=== PATIENT | female | born 1940 | race African-American/Black ===

== ENCOUNTER 2016-04-13 01:50 | Inpatient (IN) | payer OTHER ==
[2016-04-13] VITALS (51 sets, daily range): BP systolic 106–158; BP diastolic 45–103
[~2016-04-13] VITALS: Ht 160 cm; Wt 59.0 kg
[2016-04-13] MEDS ORDERED: Amiodarone 150mg/ml 3ml Amp IVP ONE (03:00)
[2016-04-13] MEDS ORDERED: Amiodarone 150mg/ml 3ml Amp ONE (03:01)
[2016-04-13 03:24] LABS: BASOPHILS % (AUTO) 0.8 % (0.0-2.0); EOSINOPHILS % (AUTO) 1.9 % (0.0-3.0); LYMPHOCYTES % (AUTO) 15.5 % (20.0-45.0); MEAN CORPUSCULAR HEMOGLOBIN 26.9 PG (27.0-31.0); MEAN CORPUSCULAR HGB CONC 32.4 G/DL (32.0-36.0); MEAN CORPUSCULAR VOLUME 83 FL (80-99); MEAN PLATELET VOLUME 6.8 FL (6.5-10.1); MONOCYTES % (AUTO) 4.9 % (1.0-10.0); NEUTROPHILS % (AUTO) 76.9 % (45.0-75.0); PLATELET COUNT 241 K/UL (150-450); RED CELL DISTRIBUTION WIDTH 17.1 % (11.6-14.8); WHITE BLOOD COUNT 7.1 K/UL (4.8-10.8)
[2016-04-13 03:35] LABS: ALANINE AMINOTRANSFERASE 44 U/L (3-33); ANION GAP 18 (5-15); ASPARTATE AMINO TRANSFERASE 60 U/L (5-40); CALCIUM 9.8 mg/dL (8.6-10.2); CARBON DIOXIDE 22 mEQ/L (20-30); CHLORIDE 104 mEQ/L (98-107); CREATININE 1.2 mg/dL (0.5-0.9); HEMOLYSIS 7; POTASSIUM 3.7 mEQ/L (3.4-4.9); SODIUM 144 mEQ/L (135-145); TOTAL PROTEIN 8.1 g/dL (6.6-8.7)
[2016-04-13 03:45] LABS: TROPONIN I < 0.30 ng/mL (<=0.30)
--- NOTE | 2016-04-13 05:08 | Emergency Room Report ---
History of Present Illness General Chief Complaint: Pacemaker/Defibrillator Source: Patient Present Illness HPI Patient is a 75-year-old female who presented from home after multiple episodes in which her automatic internal defibrillator had fired. The patient had prior history of arrhythmia. The patient is not currently taking any antiarrhythmic medications. The patient brought in by EMS. Patient reported having multiple shocklike episodes. This was onset acutely. The patient had been followed at [facility]. Her primary care physician is . History is obtained from family and EMS.The patient takes LIZ inhibitor. She had prior history of congestive heart failure and takes Lasix 40 mg Allergies: Coded Allergies: No Known Allergies (Unverified , 04/13/16) Patient History Past Medical History: see triage record Reviewed Nursing Documentation: PMH: Agreed, PSxH: Agreed Nursing Documentation-PMH Hx Pacemaker: Yes - defib placed on thanksgiving Review of Systems All Other Systems: negative except mentioned in HPI Physical Exam Vital Signs Date Time Temp Pulse Resp B/P Pulse Ox O2 Delivery O2 Flow Rate FiO2 04/13/16 01:49 97.3 78 16 177/86 100 Room Air Sp02 EP Interpretation: reviewed, normal General Appearance: normal inspection, well appearing, no apparent distress, alert, GCS 15 Head: atraumatic ENT: normal ENT inspection, hearing grossly normal, normal voice Neck: normal inspection, full range of motion, supple, no bony tend Respiratory: normal inspection, lungs clear, normal breath sounds, no respiratory distress, no retraction, no wheezing Cardiovascular #1: no edema, tachycardia, irregularly irregular Gastrointestinal: normal inspection, normal bowel sounds, non tender, soft, no guarding, no hernia Genitourinary: no CVA tenderness Musculoskeletal: normal inspection, back normal, normal range of motion Neurologic: normal inspection, alert, oriented x3, responsive, hand laminator III-XII nml as tested, speech normal Psychiatric: normal inspection, judgement/insight normal, mood/affect normal Skin: normal inspection, normal color, no rash Procedures Critical Care Time Critical Care Time Patient had a critical medical condition which untreated could potentially result in life or limb threatening injury. Total critical care time excluding procedures approximately 45 minutes. Medical Decision Making Diagnostic Impression: Primary Impression: Arrhythmia Additional Impressions: Ventricular fibrillation, paroxysmal AICD (automatic cardioverter/defibrillator) present AICD discharge ER Course The patient presented for AICD firing. Differential diagnosis included was not limited to the device malfunction, arrhythmia, electrolyte abnormality, congestive heart failure among others. The patient was noted to have markedly tachycardia with intermittent episodes where she would have AICD firing while in emergency department. The rhythm strip at the time of AICD firing showed ventricular fibrillation. Patient was given IV magnesium and amiodarone. Patient subsequently started on esmolol drip. Initial cardiac enzymes showed and negative troponin. The patient's claims customer service representative stated that patient has an EF 25% and history of tachybradycardia syndrome. He reports that he has no ischemic heart disease he states that she has a [place] scientific device. The implant on January [address] Anton was contacted for inpatient management due to complexity of medical condition. Dr. Ludmila Caballero was contacted for cardiology consult by Dr. anton. Labs Test 04/13/16 02:45 White Blood Count 7.1 K/UL (4.8-10.8) Red Blood Count 4.20 M/UL (4.20-5.40) Hemoglobin 11.3 G/DL (12.0-16.0) Hematocrit 34.8 % (37.0-47.0) Mean Corpuscular Volume 83 FL (80-99) Mean Corpuscular Hemoglobin 26.9 PG (27.0-31.0) Mean Corpuscular Hemoglobin Concent 32.4 G/DL (32.0-36.0) Red Cell Distribution Width 17.1 % (11.6-14.8) Platelet Count 241 K/UL (150-450) Mean Platelet Volume 6.8 FL (6.5-10.1) Neutrophils (%) (Auto) 76.9 % (45.0-75.0) Lymphocytes (%) (Auto) 15.5 % (20.0-45.0) Monocytes (%) (Auto) 4.9 % (1.0-10.0) Eosinophils (%) (Auto) 1.9 % (0.0-3.0) Basophils (%) (Auto) 0.8 % (0.0-2.0) Sodium Level 144 mEQ/L (135-145) Potassium Level 3.7 mEQ/L (3.4-4.9) Chloride Level 104 mEQ/L (98-107) Carbon Dioxide Level 22 mEQ/L (20-30) Anion Gap 18 (5-15) Blood Urea Nitrogen 31 mg/dL (7-23) Creatinine 1.2 mg/dL (0.5-0.9) Estimat Glomerular Filtration Rate mL/min (>60) Glucose Level 136 mg/dL (74-106) Calcium Level 9.8 mg/dL (8.6-10.2) Total Bilirubin 0.4 mg/dL (0.0-1.2) Aspartate Amino Transf (AST/SGOT) 60 U/L (5-40) Alanine Aminotransferase (ALT/SGPT) 44 U/L (3-33) Alkaline Phosphatase 119 U/L (35-104) Total Creatine Kinase 586 U/L (26-140) Troponin I < 0.30 ng/mL (<=0.30) Total Protein 8.1 g/dL (6.6-8.7) Albumin 4.2 g/dL (3.5-5.2) Globulin 3.9 g/dL Albumin/Globulin Ratio 1.0 (1.0-2.7) EKG Diagnostic Results Rate: tachycardiac ST Segments: no acute changes Rhythm Strip Diag. Results EP Interpretation: yes Rhythm: NSR, other - intermittent paced rhythm Chest X-Ray Diagnostic Results EP Interpretation: Yes Findings: no consolidation, no effusion, no pneumothorax, other - cardiomegaly Number of Views: 1 Last Vital Signs Date Time Temp Pulse Resp B/P Pulse Ox O2 Delivery O2 Flow Rate FiO2 04/13/16 04:50 97.3 60 23 134/77 97 Room Air Status: unchanged Disposition: ADMITTED INPATIENT Condition: Critical Referrals: NON PHYSICIAN (PCP) Mohan Macias Apr 13, 2016 05:08
[2016-04-13] MEDS ORDERED: LORazepam Inj 2mg/ml 1ml IV PRN (07:00)
[2016-04-13] MEDS ORDERED: Miralax 17gm pkt ORAL PRN (07:00)
[2016-04-13] MEDS ORDERED: DuoNeb 0.5-3(2.5)mg/3ml neb HHN PRN (07:00)
[2016-04-13] MEDS ORDERED: Nitroglycerin Subl 0.4mg tab (Bottle Of 25) SL PRN (07:00)
[2016-04-13] MEDS ORDERED: Morphine Sulfate 4mg/ml Inj IVP PRN (07:00)
--- NOTE | 2016-04-13 08:48 | Cardiology Progress Note ---
Assessment/Plan Assessment/Plan icd dc for pmvt? pmvt ? electolyte induc ed vs tachy induced narrow complex tachy ? afib cm per hx htn per hx k and mg supplemtn agree with amiod drip for now icd interrogation echo seril enzymes adn ekg repeat electolyte am tryign to contact her ep will have ep see here as well [id number] Objective Last 24 Hour Vital Signs Date Time Temp Pulse Resp B/P Pulse Ox O2 Delivery O2 Flow Rate FiO2 04/13/16 07:30 60 20 116/70 100 Room Air 04/13/16 07:05 97.3 60 22 108/67 100 Room Air 04/13/16 06:50 97.3 60 21 106/62 100 Room Air 04/13/16 06:35 97.3 60 22 116/70 98 Room Air 04/13/16 06:20 97.3 60 30 126/45 100 Room Air 04/13/16 06:05 97.3 118 26 113/78 100 Room Air 04/13/16 05:55 97.3 120 18 119/81 99 Room Air 04/13/16 05:50 97.3 120 22 118/79 100 Room Air 04/13/16 05:45 97.3 119 24 112/80 99 Room Air 04/13/16 05:40 97.3 120 17 107/74 97 Room Air 04/13/16 05:35 97.3 121 23 107/74 97 Room Air 04/13/16 05:30 97.3 123 15 107/76 100 Room Air 04/13/16 05:25 97.3 124 21 125/83 100 Room Air 04/13/16 05:20 97.3 126 15 127/85 100 Room Air 04/13/16 05:15 97.3 136 24 134/94 100 Room Air 04/13/16 05:10 97.3 132 21 130/91 100 Room Air 04/13/16 05:05 97.3 131 20 127/82 100 Room Air 04/13/16 05:04 97.3 60 18 135/74 100 Room Air 04/13/16 04:50 97.3 60 23 134/77 97 Room Air 04/13/16 04:45 97.3 60 29 136/79 99 Room Air 04/13/16 04:40 97.3 60 25 139/79 99 Room Air 04/13/16 04:35 97.3 123 24 126/91 96 Room Air 04/13/16 04:30 97.3 128 26 129/90 96 Room Air 04/13/16 04:25 97.3 134 24 120/87 91 Room Air 04/13/16 03:25 97.3 78 29 144/97 97 Room Air 04/13/16 03:10 97.3 122 31 144/97 100 Room Air 04/13/16 02:50 97.3 158 34 158/103 97 Room Air 04/13/16 02:30 88 04/13/16 02:30 97.3 88 16 158/103 99 Room Air 04/13/16 01:49 97.3 78 16 177/86 100 Room Air Intake and Output 04/12/16 04/13/16 19:00 07:00 Intake Total 0 ml Output Total 750 ml Balance -750 ml Intake Oral 0 ml Output Urine Total 750 ml Laboratory Tests Test 04/13/16 02:45 White Blood Count 7.1 K/UL (4.8-10.8) Red Blood Count 4.20 M/UL (4.20-5.40) Hemoglobin 11.3 G/DL (12.0-16.0) L Hematocrit 34.8 % (37.0-47.0) L Mean Corpuscular Volume 83 FL (80-99) Mean Corpuscular Hemoglobin 26.9 PG (27.0-31.0) L Mean Corpuscular Hemoglobin Concent 32.4 G/DL (32.0-36.0) Red Cell Distribution Width 17.1 % (11.6-14.8) H Platelet Count 241 K/UL (150-450) Mean Platelet Volume 6.8 FL (6.5-10.1) Neutrophils (%) (Auto) 76.9 % (45.0-75.0) H Lymphocytes (%) (Auto) 15.5 % (20.0-45.0) L Monocytes (%) (Auto) 4.9 % (1.0-10.0) Eosinophils (%) (Auto) 1.9 % (0.0-3.0) Basophils (%) (Auto) 0.8 % (0.0-2.0) Sodium Level 144 mEQ/L (135-145) Potassium Level 3.7 mEQ/L (3.4-4.9) Chloride Level 104 mEQ/L (98-107) Carbon Dioxide Level 22 mEQ/L (20-30) Anion Gap 18 (5-15) H Blood Urea Nitrogen 31 mg/dL (7-23) H Creatinine 1.2 mg/dL (0.5-0.9) H Estimat Glomerular Filtration Rate mL/min (>60) Glucose Level 136 mg/dL (74-106) H Calcium Level 9.8 mg/dL (8.6-10.2) Total Bilirubin 0.4 mg/dL (0.0-1.2) Aspartate Amino Transf (AST/SGOT) 60 U/L (5-40) H Alanine Aminotransferase (ALT/SGPT) 44 U/L (3-33) H Alkaline Phosphatase 119 U/L (35-104) H Total Creatine Kinase 586 U/L (26-140) H Creatine Kinase MB Pending Troponin I < 0.30 ng/mL (<=0.30) Total Protein 8.1 g/dL (6.6-8.7) Albumin 4.2 g/dL (3.5-5.2) Globulin 3.9 g/dL Albumin/Globulin Ratio 1.0 (1.0-2.7) KARY BEAVERS Apr 13, 2016 08:48
[2016-04-13] MEDS: Heparin 5000 units/ml inj SUBQ SCH ×2 (09:40→20:56)
[2016-04-13 10:09] LABS: ALANINE AMINOTRANSFERASE 51 U/L (3-33); ALBUMIN/GLOBULIN RATIO 1.1 (1.0-2.7); ANION GAP 15 (5-15); ASPARTATE AMINO TRANSFERASE 71 U/L (5-40); CALCIUM 9.5 mg/dL (8.6-10.2); CARBON DIOXIDE 24 mEQ/L (20-30); CHLORIDE 103 mEQ/L (98-107); CREATININE 1.1 mg/dL (0.5-0.9); HEMOLYSIS 62; POTASSIUM 4.7 mEQ/L (3.4-4.9); SODIUM 142 mEQ/L (135-145); TOTAL PROTEIN 7.4 g/dL (6.6-8.7)
[2016-04-13 10:13] LABS: TROPONIN I 0.51 ng/mL (<=0.30)
[2016-04-13] MEDS ORDERED: POTASSIUM99 M2 PO (11:52)
[2016-04-13] MEDS ORDERED: bp pill (11:52)
[2016-04-13] MEDS ORDERED: Amiodarone 200mg tab ORAL SCH (12:00)
--- NOTE | 2016-04-13 12:26 | Diagnostic Imaging Report ---
Indication: SOB Technique: One view of the chest Comparison: none Findings: The heart is enlarged. There is a 5 cm round mass at the left lung base. No infiltrates. There are is a small right-sided pleural effusion. There is a left chest AICD Impression: Left basilar 5 cm mass. Further evaluation with chest CT recommended Cardiomegaly Small right pleural effusion Dr. Gan notified of the findings at time of interpretation
--- NOTE | 2016-04-13 14:24 | Cardiology Report ---
APPROVED REPORT EXAM: Two-dimensional and M-mode echocardiogram with Doppler and color Doppler. INDICATION Chest Pain M-Mode DIMENSIONS IVSd0.9 (0.7-1.1cm)Left Atrium (MM)4.0 (1.6-4.0cm) LVDd5.1 (3.5-5.6cm)Aortic Root2.9 (2.0-3.7cm) PWd1.5 (0.7-1.1cm)Aortic Cusp Exc.1.7 (1.5-2.0cm) LVDs4.8 (2.5-4.0cm) PWs1.3 cm Technically difficult study due to poor acoustic windows. Normal left ventricular chamber size. Global LV hypokinesis. Left ventricular ejection fraction estimated to be less than 20 %. Mild left ventricular hypertrophy. No evidence of pericardial fat or effusion. Moderate left atrial enlargement by 2D. Mild right atrial enlargement by 2D. Focal aortic valve sclerosis with adequate cusp excursion Thickened mitral valve leaflets with normal excursion. Mitral annulus and aortic root calcification. Pulmonic valve not well visualized. Normal tricuspid valve structure. IVC dilated at 2.3cm with physiologic collapse. Probable pacemaker wire present in the right side chambers. A color flow and spectral Doppler study was performed and revealed: Moderate aortic regurgitation. Mild mitral regurgitation. Mitral inflow velocities indicates possible pseudo normalization pattern implying significant left ventricular diastolic dysfunction. Moderate tricuspid regurgitation. Tricuspid systolic velocities suggests peak right ventricular systolic pressure of 56 mmHg Consistent with severe pulmonary hypertension. Pulmonic regurgitation present.
--- NOTE | 2016-04-13 16:11 | History and Physical ---
History of Present Illness General Date patient seen: Apr 13, 2016 Reason for Hospitalization: Pacemaker/Defibrillator Present Illness HPI 75-year-old female with PMHx of HTN, ICD who presented from home after multiple episodes in which her automatic internal defibrillator had fired. Patient reported having multiple shocklike episodes. This was onset acutely. The patient had been followed at [facility]. She had prior history of congestive heart failure and takes Lasix 40 mg. She is being admitted to ICU for interrogation of her ICD and close monitoring Allergies: Coded Allergies: No Known Allergies (Unverified , 04/13/16) Medication History Miscellaneous Medications Potassium (Potassium), Unknown Dose PO, (Reported) [bp pill], (Reported) Patient History Healthcare decision maker Resuscitation status Advanced Directive on File Past Medical/Surgical History Past Medical/Surgical History: (1) HTN (hypertension) (2) AICD (automatic cardioverter/defibrillator) present (3) Arrhythmia Review of Systems All Other Systems: negative except mentioned in HPI Physical Exam General Appearance: WD/WN Lines, tubes and drains: peripheral, central line HEENT: normocephalic, atraumatic Neck: non-tender, supple Respiratory/Chest: chest wall non-tender, lungs clear Breasts: no masses Cardiovascular/Chest: normal peripheral pulses, normal rate Last 24 Hour Vital Signs Date Time Temp Pulse Resp B/P Pulse Ox O2 Delivery O2 Flow Rate FiO2 04/13/16 15:48 97.5 60 18 114/70 100 Room Air 04/13/16 15:00 60 18 114/70 100 Room Air 04/13/16 14:00 60 18 125/76 100 Room Air 04/13/16 13:00 60 22 113/69 100 Room Air 04/13/16 12:00 97.5 60 20 130/85 100 Room Air 04/13/16 11:00 60 22 122/82 100 Room Air 04/13/16 10:00 60 18 123/74 97 Room Air 04/13/16 09:30 60 20 121/71 95 Room Air 04/13/16 09:00 60 20 121/71 95 Room Air 04/13/16 08:30 60 20 121/73 99 Room Air 04/13/16 08:00 60 18 120/72 100 Room Air 04/13/16 07:30 60 20 116/70 100 Room Air 04/13/16 07:05 97.3 60 22 108/67 100 Room Air 04/13/16 06:50 97.3 60 21 106/62 100 Room Air 04/13/16 06:35 97.3 60 22 116/70 98 Room Air 04/13/16 06:20 97.3 60 30 126/45 100 Room Air 04/13/16 06:05 97.3 118 26 113/78 100 Room Air 04/13/16 05:55 97.3 120 18 119/81 99 Room Air 04/13/16 05:50 97.3 120 22 118/79 100 Room Air 04/13/16 05:45 97.3 119 24 112/80 99 Room Air 04/13/16 05:40 97.3 120 17 107/74 97 Room Air 04/13/16 05:35 97.3 121 23 107/74 97 Room Air 04/13/16 05:30 97.3 123 15 107/76 100 Room Air 04/13/16 05:25 97.3 124 21 125/83 100 Room Air 04/13/16 05:20 97.3 126 15 127/85 100 Room Air 04/13/16 05:15 97.3 136 24 134/94 100 Room Air 04/13/16 05:10 97.3 132 21 130/91 100 Room Air 04/13/16 05:05 97.3 131 20 127/82 100 Room Air 04/13/16 05:04 97.3 60 18 135/74 100 Room Air 04/13/16 04:50 97.3 60 23 134/77 97 Room Air 04/13/16 04:45 97.3 60 29 136/79 99 Room Air 04/13/16 04:40 97.3 60 25 139/79 99 Room Air 04/13/16 04:35 97.3 123 24 126/91 96 Room Air 04/13/16 04:30 97.3 128 26 129/90 96 Room Air 04/13/16 04:25 97.3 134 24 120/87 91 Room Air 04/13/16 03:25 97.3 78 29 144/97 97 Room Air 04/13/16 03:10 97.3 122 31 144/97 100 Room Air 04/13/16 02:50 97.3 158 34 158/103 97 Room Air 04/13/16 02:30 88 04/13/16 02:30 97.3 88 16 158/103 99 Room Air 04/13/16 01:49 97.3 78 16 177/86 100 Room Air Intake and Output 04/12/16 04/13/16 19:00 07:00 Intake Total 0 ml Output Total 750 ml Balance -750 ml Intake Oral 0 ml Output Urine Total 750 ml Laboratory Tests Test 04/13/16 02:45 04/13/16 02:48 04/13/16 09:30 White Blood Count 7.1 K/UL (4.8-10.8) Red Blood Count 4.20 M/UL (4.20-5.40) Hemoglobin 11.3 G/DL (12.0-16.0) L Hematocrit 34.8 % (37.0-47.0) L Mean Corpuscular Volume 83 FL (80-99) Mean Corpuscular Hemoglobin 26.9 PG (27.0-31.0) L Mean Corpuscular Hemoglobin Concent 32.4 G/DL (32.0-36.0) Red Cell Distribution Width 17.1 % (11.6-14.8) H Platelet Count 241 K/UL (150-450) Mean Platelet Volume 6.8 FL (6.5-10.1) Neutrophils (%) (Auto) 76.9 % (45.0-75.0) H Lymphocytes (%) (Auto) 15.5 % (20.0-45.0) L Monocytes (%) (Auto) 4.9 % (1.0-10.0) Eosinophils (%) (Auto) 1.9 % (0.0-3.0) Basophils (%) (Auto) 0.8 % (0.0-2.0) Sodium Level 144 mEQ/L (135-145) 142 mEQ/L (135-145) Potassium Level 3.7 mEQ/L (3.4-4.9) 4.7 mEQ/L (3.4-4.9) Chloride Level 104 mEQ/L (98-107) 103 mEQ/L (98-107) Carbon Dioxide Level 22 mEQ/L (20-30) 24 mEQ/L (20-30) Anion Gap 18 (5-15) H 15 (5-15) Blood Urea Nitrogen 31 mg/dL (7-23) H 30 mg/dL (7-23) H Creatinine 1.2 mg/dL (0.5-0.9) H 1.1 mg/dL (0.5-0.9) H Estimat Glomerular Filtration Rate mL/min (>60) mL/min (>60) Glucose Level 136 mg/dL (74-106) H 128 mg/dL (74-106) H Calcium Level 9.8 mg/dL (8.6-10.2) 9.5 mg/dL (8.6-10.2) Total Bilirubin 0.4 mg/dL (0.0-1.2) 0.5 mg/dL (0.0-1.2) Aspartate Amino Transf (AST/SGOT) 60 U/L (5-40) H 71 U/L (5-40) H Alanine Aminotransferase (ALT/SGPT) 44 U/L (3-33) H 51 U/L (3-33) H Alkaline Phosphatase 119 U/L (35-104) H 104 U/L (35-104) Total Creatine Kinase 586 U/L (26-140) H Creatine Kinase MB Pending Troponin I < 0.30 ng/mL (<=0.30) 0.51 ng/mL (<=0.30) *H Total Protein 8.1 g/dL (6.6-8.7) 7.4 g/dL (6.6-8.7) Albumin 4.2 g/dL (3.5-5.2) 3.9 g/dL (3.5-5.2) Globulin 3.9 g/dL 3.5 g/dL Albumin/Globulin Ratio 1.0 (1.0-2.7) 1.1 (1.0-2.7) Magnesium Level 2.0 mg/dL (1.7-2.5) Height (Feet): 5 Height (Inches): 3.00 Weight (Pounds): 130 Medications Current Medications Medications (Trade) Dose Ordered Sig/Brennan Route PRN Reason Start Time Stop Time Status Last Admin Dose Admin Acetaminophen (Tylenol) 650 mg Q4H PRN ORAL Fever 04/13/16 07:00 05/13/16 06:59 Albuterol/ Ipratropium (DuoNeb 0.5-3(2.5)mg/3ml) 3 ml Q4H PRN HHN Shortness of Breath 04/13/16 07:00 04/18/16 06:59 Amiodarone HCl (Cordarone) 400 mg BID ORAL 04/13/16 12:00 05/13/16 11:59 04/13/16 11:57 Dextrose (Dextrose 50%) STAT PRN IV Hypoglycemia 04/13/16 07:00 05/13/16 06:59 Esmolol HCl (Brevibloc) 250 ml @ 0 mls/hr Q24H IV 04/13/16 04:00 05/13/16 03:59 04/13/16 04:25 Heparin Sodium (Porcine) (Heparin 5000 units/ml) 5,000 units EVERY 12 HOURS SUBQ 04/13/16 09:00 05/13/16 08:59 04/13/16 09:40 Lorazepam (Ativan 2mg/ml 1ml) 2 mg Q2H PRN IV agitation 04/13/16 07:00 04/20/16 06:59 Morphine Sulfate (Morphine Sulfate) 4 mg Q4H PRN IVP Severe Pain (Pain Scale 7-10) 04/13/16 07:00 04/20/16 06:59 Nitroglycerin (Ntg) 0.4 mg Q5M PRN SL Prn Chest Pain 04/13/16 07:00 05/13/16 06:59 Ondansetron HCl (Zofran) 4 mg Q6H PRN IVP Nausea & Vomiting 04/13/16 07:00 05/13/16 06:59 Polyethylene Glycol (Miralax) 17 gm DAILYPRN PRN ORAL Constipation 04/13/16 07:00 05/13/16 06:59 Assessment/Plan Problem List: (1) AICD (automatic cardioverter/defibrillator) present ICD Codes: Z95.810 - Presence of automatic (implantable) cardiac defibrillator SNOMED: 468504212, 80411190, 478232749 (2) HTN (hypertension) ICD Codes: I10 - Essential (primary) hypertension SNOMED: 79075267 (3) AICD discharge ICD Codes: Z45.02 - Encounter for adjustment and management of automatic implantable cardiac defibrillator SNOMED: 053377539, 20603698, 026303635 (4) Ventricular fibrillation, paroxysmal ICD Codes: I49.01 - Ventricular fibrillation SNOMED: 21603078, 66684079, [id number] Assessment/Plan ICU monitoring anti-arrhythmic echo serial troponin monitor bp adjust pb meds cardio evaluation SERGIO DEE Apr 13, 2016 16:11
[2016-04-13] MEDS ORDERED: Amiodarone 900 MG in D5W 500ml 482 ML IV SCH (18:00)
--- NOTE | 2016-04-13 18:16 | Consultation ---
Consult Note Consult Note Cardiac EP full note dictated Pt w/ several inappropriate shocks and inappropriate ATP for rapid AF (not detected due to atrial undersensing by device) recommend: icd reprogramming - increase detection rates and increase atrial sensitivity - done Start amiodarone. #[id number] MARIA VICTORIA CORONADO Apr 13, 2016 18:15
[2016-04-13 19:00] LABS: TROPONIN I 0.59 ng/mL (<=0.30)
--- NOTE | 2016-04-13 20:57 | Consultation ---
DATE OF CONSULTATION: 04/13/2016 CARDIOLOGY CONSULTATION CONSULTING PHYSICIAN: Jorge Gan M.D. REFERRING PHYSICIAN: Nela Anton M.D. REASON FOR REFERRAL: ICD discharge. HISTORY OF PRESENT ILLNESS: This is an elderly female, who has reportedly what appears to be an intracardiac defibrillator placement for cardiomyopathy that was placed in back in January of this past year for cardiomyopathy. She apparently has done well, last night started having several bouts of ICD discharges without any other associated sensation or palpitation. No chest pain. No pressure. No shortness of breath. No dizziness or lightheadedness. Family called the paramedics. She was brought to the emergency room at [facility] where she apparently had several more of the ICD discharges. The rhythm strips, one of them indicates an episode of tachycardia that appears to be relatively narrow complex, but at a rate of 170 or so that deteriorates into what appears to be polymorphic VT, may be suggestive of torsades. There is only a partial rhythm strip available on this, but she has had several of these happening. She has received some magnesium by the emergency room physician and she has not had any further ICD discharges. She does not have any chest pain, no shortness of breath. No PND. No orthopnea. No palpitations. No dizziness. PAST MEDICAL HISTORY: Her past medical history is positive for high blood pressure and high cholesterol, cardiomyopathy, congestive heart failure, and intracardiac defibrillator placement. No diabetes. No heart attack or cancer or stroke. No hepatitis or tuberculosis. No asthma or emphysema. No ulcers. No kidney problems, liver problems, thyroid problems, or anemia. She does have arthritis. No gynecological problem. MEDICATIONS: The patient's medications at home are unknown, but do include diuretics, however, the patient specifically was instructed to discontinue potassium use after hospitalization for upper respiratory tract infection some time. ALLERGIES: She has no known drug allergies. SOCIAL HISTORY: She does not smoke or drink alcoholic beverages. She lives at home. She is . REVIEW OF SYSTEMS: Gastrointestinal: Negative. Genitourinary: Negative. Pulmonary: Negative. Constitutional: Negative. Neurologic: She denies. Cardiac: No chest pain. The remainder as per history of present illness. PHYSICAL EXAMINATION: GENERAL: Shows to be elderly female in no apparent respiratory distress. NECK: Supple. No jugular venous distention. No abdominojugular reflux noted. LUNGS: Appear to be clear to auscultation and percussion. CARDIAC: S1 is normal. S2 is normal. Regular rate and rhythm. No heaves, thrills, gallops, or rubs are noted. ABDOMEN: Soft and nontender. Positive bowel sounds. EXTREMITIES: There is no clubbing, cyanosis, nor there any edema. NEUROLOGIC: She is awake, alert, and responsive, in no apparent distress. LABORATORY AND DIAGNOSTIC DATA: Laboratory values, electrocardiogram that was performed by the paramedics indicate sinus rhythm with intermittent atrial pacing and premature ventricular complexes being noted, QT does not appear to be significantly prolonged, there is no QT interval. Repeat EKG subsequently also shows the same or no significant ST-T wave abnormalities. Her EKG eventually here has been performed, showed normal QRS axis, no ST-T-wave abnormalities being noted on this EKG whatsoever. Her troponin less than 0.03. Sodium 144, potassium 3.7, chloride 104, bicarbonate 22, BUN of 31, creatinine 1.2, glucose of 136, and calcium is 9.8. AST and ALT of 60 and 44 respectively and alkaline phosphatase at 190. CPK level 586. Albumin of 4.2. White count 7.1, hemoglobin 11.3, and platelet count of 241,000. Chest x-ray has been performed. Review of the rhythm strips indicate as mentioned with the episode of tachycardia, does not appear to be wide complex and does appear to be somewhat irregular that deteriorates into like I said polymorphic VT. ASSESSMENT: 1. Implantable cardioverter defibrillator discharge appropriate versus related to atrial fibrillation. 2. Polymorphic ventricular tachycardia. 3. Cardiomyopathy. 4. Electrolyte abnormality. 5. History of hypertension. 6. Recurrent polymorphic ventricular tachycardia cardiomyopathy. 7. History of hypertension. 8. Electrolyte abnormalities. Dr. Anton, this patient was seen in cardiac consultation. The patient agreed ICD interrogation. The patient unfortunately is not aware of the company that services the device. I put on calls to some of the reps to see if we can identify which company to interrogate her device. The fact that she has gone into a polymorphic VT makes us question whether this may be electrolyte-induced. She has received some magnesium and we will try to add that level to the blood level drawn in the emergency room. Potassium should be repleted as well. Cardiac enzymes will be checked as a matter of routine. I suspect that elevation of some may be the cause of ICD discharges. She has been given amiodarone in the emergency room and that will be continued for possibility of other VT or inappropriate discharge for atrial fibrillation, rapid ventricular response. We will decide for those two issues once ICD is interrogated. EP evaluation will be requested. The patient's usual medications will need to be identified and continued. We will try to contact the patient's usual executive vice president, we will also ask one of our electrophysiologists to follow here as well. Jorge Gan M.D. DR: Justina JOB#: [id number] CC:
[2016-04-13] MEDS ORDERED: LOSARTAN POTAS100 MG ORAL (21:30)
[2016-04-13] MEDS ORDERED: SPIRONOLACTONE1 EACH ORAL (21:30)
[2016-04-13] MEDS ORDERED: ASPIR 8181 MG ORAL (21:30)
--- NOTE | 2016-04-13 23:57 | Consultation ---
DATE OF CONSULTATION: CONSULTING PHYSICIAN: Ludmila Caballero M.D. REQUESTING PHYSICIAN: Nela Anton M.D. REASON FOR CONSULTATION: ICD shock. HISTORY OF PRESENT ILLNESS: The patient is a 75-year-old woman, with a history of nonischemic cardiomyopathy, status post dual-chamber ICD placement ([employer]) last year. She states that she was walking in her home last night when she suddenly suffered an ICD shock. She had no preceding dizziness, lightheadedness, chest pain, or palpitations. She suffered another shock then went over to a neighbor's where she experienced additional shocks. The neighbor called 911 and she was brought by paramedics to the emergency room. In the emergency room, she also had shock. She received amiodarone intravenously at 150 mg and was admitted for further treatment. She is currently without complaints of chest pain, dyspnea, dizziness, or lightheadedness. PAST MEDICAL HISTORY: As noted above. MEDICATIONS: Amiodarone 400 mg p.o. b.i.d., potassium 20 mEq given x1, subcutaneous heparin 5000 units q.12 h., DuoNeb nebulizer q.4 h. p.r.n., sublingual nitroglycerin p.r.n., Tylenol p.r.n., and Lasix 20 mg given intravenously x1. ALLERGIES: No known drug allergies. SOCIAL HISTORY: The patient is a nonsmoker. Does not drink alcohol or use any drugs. PHYSICAL EXAMINATION: VITAL SIGNS: Blood pressure is 114/70, pulse 60 and regular, respirations 20, and afebrile. GENERAL: Alert, well-developed female, in no acute distress. HEENT: Normocephalic and atraumatic. Pupils are equal, round, and reactive to light. Sclerae anicteric. Oral mucosa are moist. NECK: Supple. There is no jugular venous distention. No carotid bruits. LUNGS: Clear to auscultation bilaterally. HEART: Regular S1 and S2. No murmurs, rubs, S3, or S4. ABDOMEN: Soft and nontender. No palpable mass. EXTREMITIES: No cyanosis, clubbing, or edema. A 2+ dorsalis pedis pulses bilaterally. NEUROLOGIC: No focal motor deficits. IMAGING STUDIES: Chest x-ray shows a dual-chamber ICD with leads entering from the left to the right atrium and right ventricular apex and cardiomegaly. No pulmonary vascular congestion. An echo done today, preliminary report shows an ejection fraction less than 20%, mild left ventricular hypertrophy, moderate aortic insufficiency, and mild mitral regurgitation. LABORATORY DATA: Hemoglobin 11.3, white blood count 7100, and platelets 241,000. Sodium 142, potassium 4.7, BUN 30, and creatinine 1.1. Troponin 0.51. EKG shows sinus rhythm at rate of 81, poor R-wave progression V1 to V3, axis +[address]-segment or T-wave changes. ICD interrogation, the device is a [employer] Dynagen implanted on 12/19/2015. The review of stored diagnostics shows the total number of treated episodes for ventricular tachycardia to be 16 and ventricular fibrillation 3 since the device was last reset on 01/06/2016. Stored electrograms from today's episode show that the patient was in atrial fibrillation with some under detection in the atrium resulting in inappropriate shocks. ASSESSMENT AND RECOMMENDATIONS: The patient is a 75-year-old woman with nonischemic cardiomyopathy, ejection fraction of about 20%, status post dual-chamber ICD, who had several inappropriate device firings today for her rapidly conducted atrial fibrillation. There appears to have been some dropout of atrial sensing though electrograms clearly show atrial fibrillation. This resulted in an appropriate detection of the arrhythmia as a ventricular event and resulted in antitachycardia pacing attempts followed by shocks. The shocks did not appear to terminate the atrial fibrillation. However, she is now in sinus rhythm after having received amiodarone. The device has been reprogrammed to higher rates for ventricular tachycardia and ventricular fibrillation detection as it appears the device was a primary prevention device. In addition, atrial sensitivity has been increased to ovoid dropout of atrial sensing resulting in inappropriate detection. She is noted to have a mildly elevated troponin, which may be due to shocks. There are no other metabolic abnormalities or findings to suggest an acute coronary syndrome. I would recommend continuing oral amiodarone with maintain electrolyte and magnesium balance. Further recommendations will be made based on her clinical course. Thank you for allowing me to participate in her care. Ludmila Caballero M.D. DR: MANE JOB#: [id number] CC: Marcelina Patel M.D.
[2016-04-14] VITALS (26 sets, daily range): BP systolic 114–136; BP diastolic 48–84
[2016-04-14 01:36] LABS: BASOPHILS % (AUTO) 1.2 % (0.0-2.0); LYMPHOCYTES % (AUTO) 21.2 % (20.0-45.0); MEAN CORPUSCULAR HEMOGLOBIN 27.1 PG (27.0-31.0); MEAN CORPUSCULAR VOLUME 82 FL (80-99); MEAN PLATELET VOLUME 7.6 FL (6.5-10.1); MONOCYTES % (AUTO) 9.6 % (1.0-10.0); NEUTROPHILS % (AUTO) 67.1 % (45.0-75.0); PLATELET COUNT 213 K/UL (150-450); RED BLOOD COUNT 3.59 M/UL (4.20-5.40); RED CELL DISTRIBUTION WIDTH 16.7 % (11.6-14.8); WHITE BLOOD COUNT 4.7 K/UL (4.8-10.8)
[2016-04-14 01:47] LABS: INR 1.1 (0.9-1.1); PROTHROMBIN TIME 10.7 SEC (9.30-11.50)
[2016-04-14 01:54] LABS: PHOSPHORUS 3.8 mg/dL (2.5-4.8); TOTAL PROTEIN 6.6 g/dL (6.6-8.7)
[2016-04-14 01:55] LABS: ALANINE AMINOTRANSFERASE 39 U/L (3-33); ANION GAP 13 (5-15); ASPARTATE AMINO TRANSFERASE 52 U/L (5-40); CALCIUM 9.3 mg/dL (8.6-10.2); CARBON DIOXIDE 22 mEQ/L (20-30); CHLORIDE 105 mEQ/L (98-107); CREATININE 1.2 mg/dL (0.5-0.9); HEMOLYSIS 3; POTASSIUM 4.3 mEQ/L (3.4-4.9); SODIUM 140 mEQ/L (135-145); TOTAL PROTEIN 6.6 g/dL (6.6-8.7)
[2016-04-14 02:16] LABS: TROPONIN I 0.58 ng/mL (<=0.30)
--- NOTE | 2016-04-14 07:42 | Cardiology Progress Note ---
Assessment/Plan Assessment/Plan 1. Implantable cardioverter defibrillator discharge appropriate versus related to atrial fibrillation. 2. Polymorphic ventricular tachycardia. 3. Cardiomyopathy. 4. Electrolyte abnormality. 5. History of hypertension. 6. lung mass noted on cxr d/w dr caban no icd dc on amiod drip to po today will leave underwood of the lung mass with leda wood i have discussed with pt who understand will need further underwood of cxr abn as outpt if not performed as inpt trop abn likely due to icd discharge will d/w ep if tele strip are suggestive of pmvt ? otherwise work to dc home when ok with dr wood once on po amiod ok to tele dc iv amiod after 18 hour loading Subjective Cardiovascular: Denies: chest pain, irregular heart rate, lightheadedness Respiratory: Denies: shortness of breath Gastrointestinal/Abdominal: Denies: abdomen distended Genitourinary: Denies: burning Subjective no furthre icd dc Objective Last 24 Hour Vital Signs Date Time Temp Pulse Resp B/P Pulse Ox O2 Delivery O2 Flow Rate FiO2 04/14/16 05:30 60 16 128/73 100 Room Air 04/14/16 05:00 60 16 134/75 100 Room Air 04/14/16 04:30 60 21 128/80 100 Room Air 04/14/16 04:00 60 04/14/16 04:00 97.8 60 22 133/78 100 Room Air 04/14/16 03:30 60 22 136/75 100 Room Air 04/14/16 03:00 60 18 119/70 100 Room Air 04/14/16 02:30 60 16 128/78 100 Room Air 04/14/16 02:00 60 16 127/74 100 Room Air 04/14/16 01:30 60 22 125/75 100 Room Air 04/14/16 01:00 60 17 121/72 100 Room Air 04/14/16 00:30 60 17 122/71 100 Room Air 04/14/16 00:00 60 04/14/16 00:00 97.4 60 17 114/69 100 Room Air 04/13/16 23:30 60 18 117/62 100 Room Air 04/13/16 23:00 60 22 121/72 100 Room Air 04/13/16 22:30 60 21 116/57 100 Room Air 04/13/16 22:00 60 18 116/57 100 Room Air 04/13/16 21:30 60 26 130/73 100 Room Air 04/13/16 21:00 60 20 130/73 100 Room Air 04/13/16 20:30 60 28 125/70 100 Room Air 04/13/16 20:00 97.1 60 21 125/70 100 Room Air 04/13/16 20:00 60 04/13/16 19:30 60 20 124/72 100 Room Air 04/13/16 19:00 60 25 124/72 100 Room Air 04/13/16 18:30 61 25 124/72 100 Room Air 04/13/16 18:00 60 27 130/74 100 Room Air 04/13/16 17:00 60 04/13/16 17:00 97.8 60 28 115/74 100 Room Air 04/13/16 15:48 97.5 60 18 114/70 100 Room Air 04/13/16 15:00 60 18 114/70 100 Room Air 04/13/16 14:00 60 18 125/76 100 Room Air 04/13/16 13:00 60 22 113/69 100 Room Air 04/13/16 12:00 97.5 60 20 130/85 100 Room Air 04/13/16 11:00 60 22 122/82 100 Room Air 04/13/16 10:00 60 18 123/74 97 Room Air 04/13/16 09:30 60 20 121/71 95 Room Air 04/13/16 09:00 60 20 121/71 95 Room Air 04/13/16 08:30 60 20 121/73 99 Room Air 04/13/16 08:00 60 18 120/72 100 Room Air General Appearance: no apparent distress, alert Neck: no JVD Cardiovascular: normal rate, regular rhythm Respiratory/Chest: lungs clear, normal breath sounds Abdomen: normal bowel sounds, non tender, soft Extremities: no swelling Intake and Output 04/13/16 04/14/16 19:00 07:00 Intake Total 153.33 ml 399.52 ml Output Total 0 ml 470 ml Balance 153.33 ml -70.48 ml Intake Oral 120 ml 150 ml IV Total 33.33 ml 249.52 ml Output Urine Total 0 ml 470 ml # Voids 2 Laboratory Tests Test 04/13/16 09:30 04/13/16 17:50 04/14/16 01:30 Sodium Level 142 mEQ/L (135-145) 140 mEQ/L (135-145) Potassium Level 4.7 mEQ/L (3.4-4.9) 4.3 mEQ/L (3.4-4.9) Chloride Level 103 mEQ/L (98-107) 105 mEQ/L (98-107) Carbon Dioxide Level 24 mEQ/L (20-30) 22 mEQ/L (20-30) Anion Gap 15 (5-15) 13 (5-15) Blood Urea Nitrogen 30 mg/dL (7-23) H 37 mg/dL (7-23) H Creatinine 1.1 mg/dL (0.5-0.9) H 1.2 mg/dL (0.5-0.9) H Estimat Glomerular Filtration Rate mL/min (>60) mL/min (>60) Glucose Level 128 mg/dL (74-106) H 113 mg/dL (74-106) H Calcium Level 9.5 mg/dL (8.6-10.2) 9.3 mg/dL (8.6-10.2) Total Bilirubin 0.5 mg/dL (0.0-1.2) 0.6 mg/dL (0.0-1.2) Aspartate Amino Transf (AST/SGOT) 71 U/L (5-40) H 52 U/L (5-40) H Alanine Aminotransferase (ALT/SGPT) 51 U/L (3-33) H 39 U/L (3-33) H Alkaline Phosphatase 104 U/L (35-104) 90 U/L (35-104) Troponin I 0.51 ng/mL (<=0.30) *H 0.59 ng/mL (<=0.30) *H 0.58 ng/mL (<=0.30) *H Total Protein 7.4 g/dL (6.6-8.7) 6.6 g/dL (6.6-8.7) Albumin 3.9 g/dL (3.5-5.2) 3.4 g/dL (3.5-5.2) L Globulin 3.5 g/dL 3.2 g/dL Albumin/Globulin Ratio 1.1 (1.0-2.7) 1.0 (1.0-2.7) White Blood Count 4.7 K/UL (4.8-10.8) L Red Blood Count 3.59 M/UL (4.20-5.40) L Hemoglobin 9.7 G/DL (12.0-16.0) L Hematocrit 29.5 % (37.0-47.0) L Mean Corpuscular Volume 82 FL (80-99) Mean Corpuscular Hemoglobin 27.1 PG (27.0-31.0) Mean Corpuscular Hemoglobin Concent 33.0 G/DL (32.0-36.0) Red Cell Distribution Width 16.7 % (11.6-14.8) H Platelet Count 213 K/UL (150-450) Mean Platelet Volume 7.6 FL (6.5-10.1) Neutrophils (%) (Auto) 67.1 % (45.0-75.0) Lymphocytes (%) (Auto) 21.2 % (20.0-45.0) Monocytes (%) (Auto) 9.6 % (1.0-10.0) Eosinophils (%) (Auto) 1.0 % (0.0-3.0) Basophils (%) (Auto) 1.2 % (0.0-2.0) Prothrombin Time 10.7 SEC (9.30-11.50) Prothromb Time International Ratio 1.1 (0.9-1.1) Activated Partial Thromboplast Time 30 SEC (23-33) Phosphorus Level 3.8 mg/dL (2.5-4.8) Direct Bilirubin Pending Lactate Dehydrogenase Pending Pro-B-Type Natriuretic Peptide 18148 pg/mL (0-450) H Thyroid Stimulating Hormone (TSH) Pending KARY BEAVERS Apr 14, 2016 07:42
[2016-04-14] MEDS: Heparin 5000 units/ml inj SUBQ SCH ×2 (09:27→20:38)
--- NOTE | 2016-04-14 10:36 | Pulmonolgy Critical Care Note ---
Critical Care - Asmt/Plan Problems: (1) Ventricular fibrillation, paroxysmal (2) Anemia (3) AICD (automatic cardioverter/defibrillator) present (4) AICD discharge (5) HTN (hypertension) Respiratory: monitor respiratory rate Cardiac: continue to monitor HR/BP, other - on amiodarone Renal: F/U I&O, keep IV fluid Infectious Disease: check cultures Gastrointestinal: continue feedings/current rate Endocrine: monitor blood sugar, check HgA1C, continue sliding scale insulin Hematologic: transfuse if hgb<8.5 Neurologic: PRN Ativan, PRN Morphine, keep patient comfortable Affect: PRN ativan Prophylaxis: Protonix Notes Reviewed: lens cutter, cardio Discussed with: nurses, consultants, family service caseworkerit security project manager - Objective Last 24 Hour Vital Signs Date Time Temp Pulse Resp B/P Pulse Ox O2 Delivery O2 Flow Rate FiO2 04/14/16 10:30 62 20 121/65 100 Room Air 04/14/16 10:00 64 20 123/67 100 Room Air 04/14/16 09:30 60 16 128/73 100 Room Air 04/14/16 09:00 60 20 131/64 100 Room Air 04/14/16 08:30 60 15 124/56 100 Room Air 04/14/16 08:00 60 04/14/16 08:00 98.1 60 16 130/71 100 Room Air 04/14/16 07:30 60 16 124/59 100 Room Air 04/14/16 07:00 60 16 126/56 100 Room Air 04/14/16 05:30 60 16 128/73 100 Room Air 04/14/16 05:00 60 16 134/75 100 Room Air 04/14/16 04:30 60 21 128/80 100 Room Air 04/14/16 04:00 60 04/14/16 04:00 97.8 60 22 133/78 100 Room Air 04/14/16 03:30 60 22 136/75 100 Room Air 04/14/16 03:00 60 18 119/70 100 Room Air 04/14/16 02:30 60 16 128/78 100 Room Air 04/14/16 02:00 60 16 127/74 100 Room Air 04/14/16 01:30 60 22 125/75 100 Room Air 04/14/16 01:00 60 17 121/72 100 Room Air 04/14/16 00:30 60 17 122/71 100 Room Air 04/14/16 00:00 60 04/14/16 00:00 97.4 60 17 114/69 100 Room Air 04/13/16 23:30 60 18 117/62 100 Room Air 04/13/16 23:00 60 22 121/72 100 Room Air 04/13/16 22:30 60 21 116/57 100 Room Air 04/13/16 22:00 60 18 116/57 100 Room Air 04/13/16 21:30 60 26 130/73 100 Room Air 04/13/16 21:00 60 20 130/73 100 Room Air 04/13/16 20:30 60 28 125/70 100 Room Air 04/13/16 20:00 97.1 60 21 125/70 100 Room Air 04/13/16 20:00 60 04/13/16 19:30 60 20 124/72 100 Room Air 04/13/16 19:00 60 25 124/72 100 Room Air 04/13/16 18:30 61 25 124/72 100 Room Air 04/13/16 18:00 60 27 130/74 100 Room Air 04/13/16 17:00 60 04/13/16 17:00 97.8 60 28 115/74 100 Room Air 04/13/16 15:48 97.5 60 18 114/70 100 Room Air 04/13/16 15:00 60 18 114/70 100 Room Air 04/13/16 14:00 60 18 125/76 100 Room Air 04/13/16 13:00 60 22 113/69 100 Room Air 04/13/16 12:00 97.5 60 20 130/85 100 Room Air 04/13/16 11:00 60 22 122/82 100 Room Air Status: awake Condition: improving HEENT: atraumatic Neck: full ROM Lungs: clear Heart: HR/BP stable, HR/BP unstable Abdomen: soft, active bowel sounds, feeding tube Extremities: edema Decubiti: location Critical Care - Subjective ROS Limited/Unobtainable: No ICU Day: comfortable Condition: critical EKG Rhythm: Sinus Rhythm Drips: on amiodarone drip I&O: Intake and Output 04/13/16 04/14/16 19:00 07:00 Intake Total 153.33 ml 466.12 ml Output Total 0 ml 470 ml Balance 153.33 ml -3.88 ml Intake Oral 120 ml 200 ml IV Total 33.33 ml 266.12 ml Output Urine Total 0 ml 470 ml # Voids 2 CXR: no change Labs: Laboratory Tests Test 04/13/16 17:50 04/14/16 01:30 Troponin I 0.59 ng/mL (<=0.30) *H 0.58 ng/mL (<=0.30) *H White Blood Count 4.7 K/UL (4.8-10.8) L Red Blood Count 3.59 M/UL (4.20-5.40) L Hemoglobin 9.7 G/DL (12.0-16.0) L Hematocrit 29.5 % (37.0-47.0) L Mean Corpuscular Volume 82 FL (80-99) Mean Corpuscular Hemoglobin 27.1 PG (27.0-31.0) Mean Corpuscular Hemoglobin Concent 33.0 G/DL (32.0-36.0) Red Cell Distribution Width 16.7 % (11.6-14.8) H Platelet Count 213 K/UL (150-450) Mean Platelet Volume 7.6 FL (6.5-10.1) Neutrophils (%) (Auto) 67.1 % (45.0-75.0) Lymphocytes (%) (Auto) 21.2 % (20.0-45.0) Monocytes (%) (Auto) 9.6 % (1.0-10.0) Eosinophils (%) (Auto) 1.0 % (0.0-3.0) Basophils (%) (Auto) 1.2 % (0.0-2.0) Prothrombin Time 10.7 SEC (9.30-11.50) Prothromb Time International Ratio 1.1 (0.9-1.1) Activated Partial Thromboplast Time 30 SEC (23-33) Sodium Level 140 mEQ/L (135-145) Potassium Level 4.3 mEQ/L (3.4-4.9) Chloride Level 105 mEQ/L (98-107) Carbon Dioxide Level 22 mEQ/L (20-30) Anion Gap 13 (5-15) Blood Urea Nitrogen 37 mg/dL (7-23) H Creatinine 1.2 mg/dL (0.5-0.9) H Estimat Glomerular Filtration Rate mL/min (>60) Glucose Level 113 mg/dL (74-106) H Calcium Level 9.3 mg/dL (8.6-10.2) Phosphorus Level 3.8 mg/dL (2.5-4.8) Total Bilirubin 0.6 mg/dL (0.0-1.2) Direct Bilirubin Pending Aspartate Amino Transf (AST/SGOT) 52 U/L (5-40) H Alanine Aminotransferase (ALT/SGPT) 39 U/L (3-33) H Alkaline Phosphatase 90 U/L (35-104) Lactate Dehydrogenase Pending Pro-B-Type Natriuretic Peptide 98422 pg/mL (0-450) H Total Protein 6.6 g/dL (6.6-8.7) Albumin 3.4 g/dL (3.5-5.2) L Globulin 3.2 g/dL Albumin/Globulin Ratio 1.0 (1.0-2.7) Thyroid Stimulating Hormone (TSH) Pending SERGIO DEE Apr 14, 2016 10:36
[2016-04-14 13:03] LABS: BILIRUBIN,DIRECT 0.1 mg/dL (0.1-0.3)
--- NOTE | 2016-04-14 14:21 | Cardiology Report ---
APPROVED REPORT EKG Measurement Heart [id number] Sinus rhythm with marked sinus arrhythmia Cannot rule out Anterior infarct, age undetermined Abnormal ECG
[2016-04-14] MEDS ORDERED: Nitroglycerin Subl 0.4mg tab (Bottle Of 25) SL PRN (14:30)
[2016-04-14 14:37] LABS: CKMB 9.6 ng/mL (< 3.8)
[2016-04-14] MEDS ORDERED: Miralax 17gm pkt ORAL PRN (15:00)
[2016-04-14] MEDS ORDERED: DuoNeb 0.5-3(2.5)mg/3ml neb HHN PRN (15:00)
[2016-04-14] MEDS ORDERED: Morphine Sulfate 4mg/ml Inj IVP PRN (15:00)
[2016-04-14] MEDS ORDERED: LORazepam Inj 2mg/ml 1ml IV PRN (15:00)
[2016-04-14] MEDS ORDERED: Amiodarone 900 MG in D5W 500ml 482 ML IV SCH (18:00)
--- NOTE | 2016-04-14 19:28 | Cardiac Electrophysiology PN ---
Assessment/Plan Problem List: (1) Nonischemic cardiomyopathy (2) AICD discharge (3) HTN (hypertension) (4) AICD (automatic cardioverter/defibrillator) present Status: doing well, stable Status Narrative Mrs. Saldivar remains in SR. She has not had further AF or ICD discharges. Mild troponin elevation is likely due to shocks Assessment/Plan continue amiodarone loading dose po. Consider anticoagulation for PAF. Subjective ROS Limited/Unobtainable: No Subjective Mrs. Saldivar feels well. no c/o chest pain, palpitations or dizziness. She has not had further icd shocks Objective Last 24 Hour Vital Signs Date Time Temp Pulse Resp B/P Pulse Ox O2 Delivery O2 Flow Rate FiO2 04/14/16 16:00 97.3 60 20 133/72 95 Room Air 04/14/16 14:00 62 20 121/50 100 Room Air 04/14/16 13:00 60 20 131/76 100 Room Air 04/14/16 12:00 97.9 60 20 121/84 100 Room Air 04/14/16 12:00 60 04/14/16 11:00 60 20 131/76 100 Room Air 04/14/16 10:30 62 20 121/65 100 Room Air 04/14/16 10:00 64 20 123/67 100 Room Air 04/14/16 09:30 60 16 128/73 100 Room Air 04/14/16 09:00 60 20 131/64 100 Room Air 04/14/16 08:30 60 15 124/56 100 Room Air 04/14/16 08:00 60 04/14/16 08:00 98.1 60 16 130/71 100 Room Air 04/14/16 07:30 60 16 124/59 100 Room Air 04/14/16 07:00 60 16 126/56 100 Room Air 04/14/16 05:30 60 16 128/73 100 Room Air 04/14/16 05:00 60 16 134/75 100 Room Air 04/14/16 04:30 60 21 128/80 100 Room Air 04/14/16 04:00 60 04/14/16 04:00 97.8 60 22 133/78 100 Room Air 04/14/16 03:30 60 22 136/75 100 Room Air 04/14/16 03:00 60 18 119/70 100 Room Air 04/14/16 02:30 60 16 128/78 100 Room Air 04/14/16 02:00 60 16 127/74 100 Room Air 04/14/16 01:30 60 22 125/75 100 Room Air 04/14/16 01:00 60 17 121/72 100 Room Air 04/14/16 00:30 60 17 122/71 100 Room Air 04/14/16 00:00 60 04/14/16 00:00 97.4 60 17 114/69 100 Room Air 04/13/16 23:30 60 18 117/62 100 Room Air 04/13/16 23:00 60 22 121/72 100 Room Air 04/13/16 22:30 60 21 116/57 100 Room Air 04/13/16 22:00 60 18 116/57 100 Room Air 04/13/16 21:30 60 26 130/73 100 Room Air 04/13/16 21:00 60 20 130/73 100 Room Air 04/13/16 20:30 60 28 125/70 100 Room Air 04/13/16 20:00 97.1 60 21 125/70 100 Room Air 04/13/16 20:00 60 04/13/16 19:30 60 20 124/72 100 Room Air General Appearance: WD/WN, no apparent distress, alert EENT: PERRL/EOMI Neck: supple, no JVD Rhythm: NSR Cardiovascular: normal rate, regular rhythm, no gallop/murmur Respiratory/Chest: lungs clear Abdomen: non tender, soft Intake and Output 04/13/16 04/14/16 19:00 07:00 Intake Total 153.33 ml 466.12 ml Output Total 0 ml 470 ml Balance 153.33 ml -3.88 ml Intake Oral 120 ml 200 ml IV Total 33.33 ml 266.12 ml Output Urine Total 0 ml 470 ml # Voids 2 Laboratory Tests Test 04/14/16 01:30 White Blood Count 4.7 K/UL (4.8-10.8) L Red Blood Count 3.59 M/UL (4.20-5.40) L Hemoglobin 9.7 G/DL (12.0-16.0) L Hematocrit 29.5 % (37.0-47.0) L Mean Corpuscular Volume 82 FL (80-99) Mean Corpuscular Hemoglobin 27.1 PG (27.0-31.0) Mean Corpuscular Hemoglobin Concent 33.0 G/DL (32.0-36.0) Red Cell Distribution Width 16.7 % (11.6-14.8) H Platelet Count 213 K/UL (150-450) Mean Platelet Volume 7.6 FL (6.5-10.1) Neutrophils (%) (Auto) 67.1 % (45.0-75.0) Lymphocytes (%) (Auto) 21.2 % (20.0-45.0) Monocytes (%) (Auto) 9.6 % (1.0-10.0) Eosinophils (%) (Auto) 1.0 % (0.0-3.0) Basophils (%) (Auto) 1.2 % (0.0-2.0) Prothrombin Time 10.7 SEC (9.30-11.50) Prothromb Time International Ratio 1.1 (0.9-1.1) Activated Partial Thromboplast Time 30 SEC (23-33) Sodium Level 140 mEQ/L (135-145) Potassium Level 4.3 mEQ/L (3.4-4.9) Chloride Level 105 mEQ/L (98-107) Carbon Dioxide Level 22 mEQ/L (20-30) Anion Gap 13 (5-15) Blood Urea Nitrogen 37 mg/dL (7-23) H Creatinine 1.2 mg/dL (0.5-0.9) H Estimat Glomerular Filtration Rate mL/min (>60) Glucose Level 113 mg/dL (74-106) H Calcium Level 9.3 mg/dL (8.6-10.2) Phosphorus Level 3.8 mg/dL (2.5-4.8) Total Bilirubin 0.6 mg/dL (0.0-1.2) Direct Bilirubin 0.1 mg/dL (0.1-0.3) Aspartate Amino Transf (AST/SGOT) 52 U/L (5-40) H Alanine Aminotransferase (ALT/SGPT) 39 U/L (3-33) H Alkaline Phosphatase 90 U/L (35-104) Lactate Dehydrogenase 334 U/L (135-230) H Troponin I 0.58 ng/mL (<=0.30) *H Pro-B-Type Natriuretic Peptide 38584 pg/mL (0-450) H Total Protein 6.6 g/dL (6.6-8.7) Albumin 3.4 g/dL (3.5-5.2) L Globulin 3.2 g/dL Albumin/Globulin Ratio 1.0 (1.0-2.7) Thyroid Stimulating Hormone (TSH) 2.080 uIU/mL (0.300-4.500) MARIA VICTORIA CORONADO Apr 14, 2016 19:28
[2016-04-14] MEDS: Docusate 100mg cap ORAL SCH (20:36)
[2016-04-15 00:14] VITALS: BP 128/90
[2016-04-15 04:13] VITALS: BP 134/77
[2016-04-15] MEDS: Docusate 100mg cap ORAL SCH (08:49)
[2016-04-15] MEDS: Heparin 5000 units/ml inj SUBQ SCH (08:50)
[2016-04-15] MEDS ORDERED: ELIQUIS2.5 MG PO (14:44)
--- NOTE | 2016-04-15 14:53 | Diagnostic Imaging Report ---
Indications: Shortness of breath, cough, left retrocardiac mass on chest radiograph Technique: Continuous helical CT imaging of the thorax and upper abdomen was performed with automatic exposure control following intravenous administration of nonionic iodine contrast, on a Siemens sensation [address] scanner. Axial, coronal, and sagittal images were reconstructed at 5 mm slice thickness. CTDI volume(s): 8, 138, 18 mGy Total DLP: 809 mGy-cm Findings: Comparison: Chest radiograph 04/13/16 Is a 5 cm hernia through the midline posterior aspect of the left hemidiaphragm, through which protrudes a short segment of colon. Irregular pleural-based linear densities are present in the dependent portions both lung bases. No lung mass identified. Moderate size right pleural effusion is present. No left pleural abnormality demonstrated. The heart demonstrates four-chamber enlargement and contains pacemaker leads. Pacemaker generator in left anterior chest wall subcutaneous soft tissues. Scattered arterial mural calcifications. Vascular nonaneurysmal. Central pulmonary arteries normal in size, no obvious intraluminal filling defects. Small nodular calcifications in mediastinum. Left upper extremity, chest wall, neck base collateral venous opacification. 1 cm circumscribed low-attenuation focus in hepatic segment 7. 7 mm circumscribed low-attenuation focus in hepatic segment 4A. Gas-filled filling defect in gallbladder left colonic diverticula. Disc marginal osteophytes in the thoracic, lower cervical spine. Impression: Left hemidiaphragmatic hernia containing colon, accounting for retrocardiac mass on chest radiograph. No evidence of lung mass. 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 Ultrasound correlation suggested. Colonic diverticulosis Degenerative spondylosis Cholelithiasis
[2016-04-15 16:00] VITALS: BP 118/71
--- NOTE | 2016-04-15 18:08 | Cardiology Progress Note ---
Assessment/Plan Assessment/Plan 1. Implantable cardioverter defibrillator discharge appropriate versus related to atrial fibrillation. 2. Polymorphic ventricular tachycardia. 3. Cardiomyopathy. 4. Electrolyte abnormality. 5. History of hypertension. 6. lung mass noted on cxr d/w dr caban no icd dc po amiod at home 200 mg bid for 10 days then 200 mg daily cct showe d no massses only a hernia trop abn likely due to icd discharge eliquis 5 mg bid to fu wiht ep and pmd , understood Subjective Cardiovascular: Denies: lightheadedness, palpitations Respiratory: Denies: shortness of breath Genitourinary: Denies: burning Subjective no furthre icd dc Objective Last 24 Hour Vital Signs Date Time Temp Pulse Resp B/P Pulse Ox O2 Delivery O2 Flow Rate FiO2 04/15/16 16:00 97.5 60 20 118/71 98 Room Air 04/15/16 12:00 67 04/15/16 08:00 60 04/15/16 07:30 70 18 Room Air 04/15/16 04:13 98.3 63 18 134/77 98 Room Air 04/15/16 04:00 60 04/15/16 00:14 98.8 62 19 128/90 99 Room Air 04/15/16 00:00 63 04/14/16 20:36 65 18 Room Air 04/14/16 20:00 60 04/14/16 19:00 97.7 61 20 121/48 100 Room Air General Appearance: no apparent distress Neck: supple Cardiovascular: normal rate Respiratory/Chest: lungs clear Abdomen: normal bowel sounds, non tender, soft Extremities: no swelling Intake and Output 04/14/16 04/15/16 19:00 07:00 Intake Total 436.2 ml 720 ml Output Total 130 ml Balance 306.2 ml 720 ml Intake Oral 320 ml 720 ml IV Total 116.2 ml Output Urine Total 130 ml # Voids 4 5 # Bowel Movements 1 1 Laboratory Tests Test 04/15/16 14:40 Carcinoembryonic Antigen 2.9 ng/mL Microbiology Date/Time Source Procedure Growth Status 04/13/16 12:50 Nasal Nares MRSA Culture - Final NO METHICILLIN RESISTANT STAPH AUREUS... Complete 04/13/16 12:50 Rectum VRE Culture - Final NO VANCOMYCIN RESISTANT ENTEROCOCCUS ... Complete KARY BEAVERS Apr 15, 2016 18:08
--- NOTE | 2016-04-16 07:38 | Discharge Summary 2 SIG ---
DATE OF ADMISSION: 04/13/2016 DATE OF DISCHARGE: 04/15/2016 CONSULTANTS: 1. Jorge Gan M.D. 2. Ludmila Johnson M.D. BRIEF HOSPITAL COURSE: The patient is a 75-year-old female with history of hypertension and ICD who presented from home after multiple episodes in which her automatic internal defibrillator had fired. The patient reported having multiple shock like episodes. She has history of congestive heart failure and is on Lasix. She was admitted to ICU for monitoring. and Dr. Johnson were consulted. An echocardiogram performed by paramedics indicate sinus rhythm with intermittent atrial pacing and premature ventricular complex. QT does not appear to be significantly prolonged. There is no QT interval. Repeat EKG subsequently also showed no significant ST to T-wave abnormalities. EKG performed here showed normal QRS axis. No ST to T-wave abnormalities. Troponin was negative. CPK level was 586. She was given magnesium IV and potassium. She had a [employer] dual-chamber ICD placed last year. Chest x-ray showed dual-chamber ICD with leads entering from the left to the right atrium and right ventricular apex and cardiomegaly. No pulmonary vascular congestion. Echocardiogram preliminary report showed ejection fraction less than 20%, mild left ventricular hypertrophy, moderate aortic insufficiency, and mild mitral regurgitation. ICD interrogation done. Review of the diagnostic showed total number of treated episodes for ventricular tachycardia to be 16 and ventricular fibrillation 3 since the device was last be sent on 01/06/2016. Stored electrograms showed the patient was in atrial fibrillation with some under detection in the atrium resulting in inappropriate shocks. There appears to have been some dropout of atrial sensing through electrograms clearly show atrial fibrillation resulting in appropriate detection of the arrhythmia, as a ventricular event and resulted in antitachycardia pacing followed by shocks. The shocks did not appear to terminate the atrial fibrillation. The device has been reprogrammed to higher rates for ventricular tachycardia and ventricular fibrillation detection, as it appears the device was a primary prevention device. In addition, atrial sensitivity has been increased to avoid dropout of atrial sensing resulting in inappropriate detection. She was noted to have a mildly elevated troponin, which may be due to shocks. There are no other metabolic abnormalities or findings to suggest an acute coronary syndrome. She was continued on oral amiodarone. She remained to be on sinus rhythm and was started on anticoagulation with Eliquis 5 mg twice a day. Chest CT showed no mass. No PE. She was discharged home. Advised to follow up with PMD and Cardiology as an outpatient. FINAL DIAGNOSES: 1. Implantable cardioverter-defibrillator firing. 2. Polymorphic ventricular tachycardia. 3. Cardiomyopathy. 4. History of hypertension. 5. Gastroesophageal reflux disease. 6. Nonischemic cardiomyopathy. 7. Anemia. 8. Hypertension. Nela Anton M.D. I have been assigned to dictate discharge summary on this account and I was not involved in the patient's management. Carolyn Sharma N.P. DR: MARIO ALBERTO JOB#: [id number] CC: LEEANN
== END 2016-04-15 19:03 | disposition home health service (06) | DRG 310 ==
LOC: EDBD 01:50 → EMR 02:12 → EDBEDREQ 02:51 → ICU 03:04 → EDBEDREQ 07:10 → 2E 04-14 14:17
DX: I48.91 Unspecified atrial fibrillation (principal); I49.01 Ventricular fibrillation; I42.9 Cardiomyopathy, unspecified; I50.9 Heart failure, unspecified; I10 Essential (primary) hypertension; R91.8 Other nonspecific abnormal finding of lung field; I47.2 Ventricular tachycardia; K21.9 Gastro-esophageal reflux disease without esophagitis; I08.0 Rheumatic disorders of both mitral and aortic valves; E78.00 Pure hypercholesterolemia, unspecified; E87.8 Other disorders of electrolyte and fluid balance, not elsewhere classified; D64.9 Anemia, unspecified
CPT/HCPCS: 36415; 71010; 71260; 80053; 80076; 82378; 82550; 82553; 83615; 83735; 83880; 84100; 84443; 84484; 85025; 85610; 85730; 87081; 93005; 93306; 94664; J8499